=== PATIENT | female | born 2000 | race Caucasian/White ===

== ENCOUNTER 2020-10-04 16:43 | Inpatient (IN) | payer BC, OTHER ==
[~2020-10-04] VITALS: Ht 175.3 cm; Wt 91.6 kg
[2020-10-04] MEDS ORDERED: LACTATED RINGERS 500 ML 500 ML IV PRN (23:30)
[2020-10-04] MEDS ORDERED: ROPIVACAINE 0.2% 100ML VIAL 100 ML EP SCH (23:30)
[2020-10-04] MEDS ORDERED: EPHEDRINE SULFATE 50 MG/ML AMPULE IVP PRN (23:30)
[2020-10-04] MEDS ORDERED: NALOXONE HCL 0.4 MG/1 ML ML IV PRN (23:30)
[2020-10-04] MEDS ORDERED: PREN-196 PO (23:33)
[2020-10-04 23:55] LABS: APPEARANCE,URINE Clear (CLEAR); BILIRUBIN,URINE Negative (NEGATIVE); COLOR,URINE Yellow (YELLOW); GLUCOSE, URINE (UA) Negative (NEGATIVE); KETONES,URINE Negative (NEGATIVE); LEUKOCYTE ESTERASE ,URINE Small (NEGATIVE); NITRATE,URINE Negative (NEGATIVE); OCCULT BLOOD,URINE Negative (NEGATIVE); PROTEIN,URINE Negative (NEGATIVE); UROBILINOGEN,URINE 0.2 mg/dL (0.2-1.0)
[2020-10-05 00:02] LABS: AMPHET/METH SCREEN,URINE NEGATIVE (NEGATIVE); BARBITURATE SCREEN, URINE NEGATIVE (NEGATIVE); BENZODIAZEPINES SCREEN,URINE NEGATIVE (NEGATIVE); CANNABINOID SCREEN,URINE NEGATIVE (NEGATIVE); COCAINE SCREEN,URINE NEGATIVE (NEGATIVE); OPIATE SCREEN,URINE NEGATIVE (NEGATIVE); PHENCYCLIDINE SCREEN,URINE NEGATIVE (NEGATIVE)
[2020-10-05 00:09] LABS: BACTERIA,URINE Few /HPF (None Seen)
[2020-10-05] MEDS: LACTATED RINGERS 1000ML 1,000 ML IV PRN ×2 (00:16→20:36)
[2020-10-05 00:32] LABS: HEMATOCRIT 34.1 % (36-48); MEAN CORPUSCULAR HEMOGLOBIN 28.7 pg (27.0-33.0); MEAN CORPUSCULAR HGB CONC 32.6 g/dL (32.0-36.0); MEAN CORPUSCULAR VOLUME 88.1 fL (80-100); RED BLOOD CELL COUNT(AUTO) 3.87 MIL/uL (4.00-5.50); RED CELL DISTRIBUTION WIDTH 13.5 % (11.0-15.5); WHITE BLOOD COUNT (AUTO) 9.8 K/uL (4.8-10.8)
[2020-10-05] MEDS: OXYTOCIN-LR 20 UNITS/1000 ML 1,000 ML IV SCH ×2 (05:02→23:51)
[2020-10-05 08:51] LABS: RAPID PLASMA REAGIN NONREACTIVE (NONREACTIVE)
[2020-10-05] MEDS: PROMETHAZINE HCL 25 MG/ML 1ML AMPULE IM PRN (19:24)
[2020-10-05] MEDS: MEPERIDINE-PF 50 MG/ML SYG IVP PRN (19:25)
[2020-10-06] MEDS: PROMETHAZINE HCL 25 MG/ML 1ML AMPULE IM PRN (00:51)
[2020-10-06] MEDS: MEPERIDINE-PF 50 MG/ML SYG IVP PRN (00:52)
[2020-10-06] MEDS ORDERED: OXYTOCIN-LR 20 UNITS/1000 ML 1,000 ML IV SCH (03:45)
[2020-10-06] MEDS ORDERED: BENZOCAINE/LANOLIN/ALOE VERA 60 ML AEROSOL TP PRN (03:45)
[2020-10-06] MEDS ORDERED: CEFAZOLIN SODIUM 1 GM VIAL IVP SCH (03:45)
[2020-10-06] MEDS ORDERED: DIPH,PERTUSS(ACELL),TET VAC/PF 0.5 ML VIAL IM PRN (03:45)
[2020-10-06] MEDS ORDERED: ACETAMINOPHEN 325 MG TAB PO PRN (03:45)
[2020-10-06] MEDS ORDERED: WITCH HAZEL 1 PAD TP PRN (03:45)
[2020-10-06] MEDS ORDERED: ACETAMINOPHEN WITH CODEINE 1 TAB TAB PO PRN (03:45)
[2020-10-06] MEDS ORDERED: LANOLIN 30GM OINTMENT TP PRN (03:45)
[2020-10-06] MEDS ORDERED: CEFAZOLIN SODIUM 1 GM VIAL ONE (04:05)
[2020-10-06] MEDS ORDERED: IBUPROFEN 600 MG TABLET ONE (04:15)
[2020-10-06] MEDS: OXYTOCIN-LR 20 UNITS/1000 ML 1,000 ML IV SCH (05:00)
[2020-10-06 06:37] VITALS: BP 114/68
[2020-10-06 07:14] VITALS: BP 118/48
[2020-10-06 07:20] LABS: HEPATITIS Bs ANTIGEN SCREEN P Negative (Negative)
[2020-10-06] MEDS: DOCUSATE SODIUM 100 MG CAP PO SCH ×2 (09:11→21:01)
[2020-10-06] MEDS: IBUPROFEN 600 MG TABLET PO PRN ×2 (09:13→22:54)
[2020-10-06 11:33] VITALS: BP 107/44
[2020-10-06] MEDS ORDERED: CEFAZOLIN SODIUM 1 GM VIAL IVP ONE (14:00)
[2020-10-06 16:19] VITALS: BP 108/57
[2020-10-06] MEDS ORDERED: DEXT350P5 PO (18:33)
[2020-10-06 19:49] VITALS: BP 124/66
[2020-10-07 03:48] VITALS: BP 113/51
[2020-10-07 06:14] LABS: HEMATOCRIT 29.5 % (36-48); MEAN CORPUSCULAR HEMOGLOBIN 28.7 pg (27.0-33.0); MEAN CORPUSCULAR HGB CONC 32.5 g/dL (32.0-36.0); MEAN CORPUSCULAR VOLUME 88.3 fL (80-100); RED BLOOD CELL COUNT(AUTO) 3.34 MIL/uL (4.00-5.50); RED CELL DISTRIBUTION WIDTH 13.8 % (11.0-15.5); WHITE BLOOD COUNT (AUTO) 14.2 K/uL (4.8-10.8)
[2020-10-07 07:30] VITALS: BP 109/67
[2020-10-07] MEDS: DOCUSATE SODIUM 100 MG CAP PO SCH (08:59)
[2020-10-07] MEDS: IBUPROFEN 600 MG TABLET PO PRN (09:00)
[2020-10-07 11:30] VITALS: BP 135/71
== END 2020-10-07 11:35 | disposition home or self-care (01) | DRG 768 ==
LOC: LDH 23:16 → WSH 10-06 07:00
PROVIDERS: ADMIT Internal Medicine; ATTEND Internal Medicine
PROC: 10D07Z6 Extraction of Products of Conception, Vacuum, Via Natural or Artificial Opening (ICD-10-PCS; principal; 2020-10-06)
PROC: 0DQR0ZZ Repair Anal Sphincter, Open Approach (ICD-10-PCS; 2020-10-06)
PROC: 3E033VJ Introduction of Other Hormone into Peripheral Vein, Percutaneous Approach (ICD-10-PCS; 2020-10-06)
PROC: 10907ZC Drainage of Amniotic Fluid, Therapeutic from Products of Conception, Via Natural or Artificial Opening (ICD-10-PCS; 2020-10-06)
PROC: 3E0234Z Introduction of Serum, Toxoid and Vaccine into Muscle, Percutaneous Approach (ICD-10-PCS; 2020-10-06)
DX: O75.81 Maternal exhaustion complicating labor and delivery (principal); Z37.0 Single live birth; O77.0 Labor and delivery complicated by meconium in amniotic fluid; O69.81X0 Labor and delivery complicated by cord around neck, without compression, not applicable or unspecified; O70.20 Third degree perineal laceration during delivery, unspecified; Z3A.39 39 weeks gestation of pregnancy; Z23 Encounter for immunization
CPT/HCPCS: 36415; 80305; 81001; 85027; 86592; 86701; 86850; 86900; 86901; 87340; 87390; G0378; J0690; J2175; J2550; J2590; J7120

== ENCOUNTER 2021-11-07 02:25 | Inpatient (IN) | payer BC, OTHER ==
[~2021-11-07] VITALS: Ht 162.6 cm; Wt 96.2 kg
[~2021-11-07 02:25] MED LIST: DEXT350P5 PO; PREN-196 PO
[2021-11-07 03:00] LABS: APPEARANCE,URINE Cloudy (CLEAR); BILIRUBIN,URINE Negative (NEGATIVE); COLOR,URINE Yellow (YELLOW); GLUCOSE, URINE (UA) Negative (NEGATIVE); KETONES,URINE 15 mg/dL (NEGATIVE); LEUKOCYTE ESTERASE ,URINE Trace (NEGATIVE); NITRATE,URINE Negative (NEGATIVE); OCCULT BLOOD,URINE Negative (NEGATIVE); PROTEIN,URINE POS 2+ mg/dL (NEGATIVE)
[2021-11-07] MEDS ORDERED: PROMETHAZINE HCL 25 MG/ML 1ML AMPULE IM PRN (03:00)
[2021-11-07] MEDS ORDERED: MEPERIDINE-PF 50 MG/ML SYG IVP PRN (03:00)
[2021-11-07] MEDS ORDERED: LACTATED RINGERS 1000ML 1,000 ML IV PRN (03:00)
[2021-11-07 03:21] LABS: RBC,URINE 0-1 /HPF (0-1)
[2021-11-07 03:29] LABS: BACTERIA,URINE Few /HPF (None Seen); SQUAMOUS EPITHELIAL CELL,UR Few /HPF (0-2)
[2021-11-07 03:30] LABS: AMORPHOUS SEDIMENT,UR Few /LPF (None Seen); MUCUS,URINE Few LPF (None Seen)
[2021-11-07] MEDS ORDERED: LIDOCAINE HCL 1% 20 ML VIAL ONE (03:38)
[2021-11-07 03:50] LABS: HEMATOCRIT 37.5 % (36-48); MEAN CORPUSCULAR HEMOGLOBIN 27.9 pg (27.0-33.0); MEAN CORPUSCULAR HGB CONC 32.5 g/dL (32.0-36.0); MEAN CORPUSCULAR VOLUME 85.6 fL (80-100); RED BLOOD CELL COUNT(AUTO) 4.38 MIL/uL (4.00-5.50); RED CELL DISTRIBUTION WIDTH 13.9 % (11.0-15.5); WHITE BLOOD COUNT (AUTO) 10.8 K/uL (4.8-10.8)
[2021-11-07 07:50] VITALS: BP 125/71
[2021-11-07] MEDS ORDERED: BENZOCAINE/LANOLIN/ALOE VERA 60 ML AEROSOL TP PRN (08:00)
[2021-11-07] MEDS ORDERED: ACETAMINOPHEN WITH CODEINE 1 TAB TAB PO PRN (08:00)
[2021-11-07] MEDS ORDERED: DIPH,PERTUSS(ACELL),TET VAC/PF 0.5 ML VIAL IM PRN (08:00)
[2021-11-07] MEDS ORDERED: LANOLIN 30GM OINTMENT TP PRN (08:00)
[2021-11-07] MEDS ORDERED: ACETAMINOPHEN 325 MG TAB PO PRN (08:00)
[2021-11-07] MEDS ORDERED: WITCH HAZEL 1 PAD TP PRN (08:00)
[2021-11-07] MEDS: DOCUSATE SODIUM 100 MG CAP PO SCH ×2 (08:16→20:36)
[2021-11-07] MEDS: IBUPROFEN 600 MG TABLET PO PRN (08:17)
[2021-11-07 08:20] VITALS: BP 129/79
[2021-11-07] MEDS: OXYTOCIN-LR 20 UNITS/1000 ML 1,000 ML IV SCH (09:59)
[2021-11-07 11:00] VITALS: BP 129/68
[2021-11-07 17:08] VITALS: BP 119/72
[2021-11-07 19:13] VITALS: BP 119/61
[2021-11-07 23:02] VITALS: BP 122/55
[2021-11-08] MEDS: OXYTOCIN-LR 20 UNITS/1000 ML 1,000 ML IV SCH (03:00)
[2021-11-08 03:19] VITALS: BP 99/52
[2021-11-08 06:41] LABS: HEMATOCRIT 28.5 % (36-48); MEAN CORPUSCULAR HEMOGLOBIN 27.1 pg (27.0-33.0); MEAN CORPUSCULAR HGB CONC 31.2 g/dL (32.0-36.0); MEAN CORPUSCULAR VOLUME 86.9 fL (80-100); RED BLOOD CELL COUNT(AUTO) 3.28 MIL/uL (4.00-5.50); RED CELL DISTRIBUTION WIDTH 14.2 % (11.0-15.5); WHITE BLOOD COUNT (AUTO) 10.3 K/uL (4.8-10.8)
[2021-11-08 07:45] VITALS: BP 117/75
[2021-11-08] MEDS: DOCUSATE SODIUM 100 MG CAP PO SCH (08:51)
[2021-11-08] MEDS: IBUPROFEN 600 MG TABLET PO PRN (08:53)
[2021-11-08] MEDS ORDERED: DOCU-116 PO (10:12)
[2021-11-08] MEDS ORDERED: IBUP-2070 PO (10:13)
[2021-11-08 11:38] VITALS: BP 113/63
== END 2021-11-08 12:30 | disposition home or self-care (01) | DRG 768 ==
LOC: EDH 02:25 → LDH 02:26 → WSH 07:30
PROVIDERS: ADMIT Internal Medicine; ATTEND Internal Medicine
PROC: 0DQR0ZZ Repair Anal Sphincter, Open Approach (ICD-10-PCS; principal; 2021-11-07)
PROC: 10E0XZZ Delivery of Products of Conception, External Approach (ICD-10-PCS; 2021-11-07)
PROC: 3E0234Z Introduction of Serum, Toxoid and Vaccine into Muscle, Percutaneous Approach (ICD-10-PCS; 2021-11-07)
DX: O77.0 Labor and delivery complicated by meconium in amniotic fluid (principal); Z37.0 Single live birth; O70.20 Third degree perineal laceration during delivery, unspecified; Z3A.40 40 weeks gestation of pregnancy; Z23 Encounter for immunization
CPT/HCPCS: 36415; 81001; 85027; 86592; 86850; 86900; 86901; 87340; 90715; G0378; J2175; J2550; J2590